=== PATIENT | male | born 1945 | race Caucasian/White ===

== ENCOUNTER 2016-09-07 03:38 | Emergency (ER) | payer OTHER ==
--- NOTE | 2016-09-07 06:02 | ED CLINICAL REPORT ---
Clinical Report - Physicians/Mid Levels [facility] [address] [place] [address] 09/07/2016 3:40 Patient: TIGRE BIANCHI Time Seen: 0340; initial patient contact. Arrived- By private vehicle. Historian- patient. HISTORY OF PRESENT ILLNESS Chief Complaint: FEVER. This started yesterday and is still present. It is not gone now. No muscle aches, chest pain, dyspnea, cough or altered mental status. No skin breakdown noted or rash. He has had fatigue. Additional history - No known contact with a sick individual. burning with urination. also describes rigors. Similar symptoms previously: None. Recent medical care: Not recently seen/assessed. REVIEW OF SYSTEMS No nausea, vomiting or headache. All systems otherwise negative, except as recorded above. PAST HISTORY See nurses notes. Medications: Hydrochlorothiazide Oral 25 mg, daily. Lisinopril Oral, daily. Allergies: No Known Drug Allergy. SOCIAL HISTORY Former smoker. Alcohol use. Not exposed to second-hand smoke at home. No drug use. No recent travel. Is a local resident. ADDITIONAL NOTES The nursing notes have been reviewed. PHYSICAL EXAM Vital Signs: 09/07/2016 03:46 BP: 121/62. HR: 85. RR: 20. O2 saturation: 91%. Temp: 102.7 F. Pain level now: 0/10. Blood pressure normal. Oxygen saturation normal. Appearance: Alert. No acute distress. (non-toxic appearance). ENT: Ears normal. Nose normal. Pharynx normal. Uvula midline. Neck: Normal inspection. Neck supple. No meningeal signs. CVS: Normal heart rate and rhythm. Heart sounds normal. Pulses normal. Respiratory: No respiratory distress. Breath sounds normal. Chest nontender. No rales, rhonchi or wheezes. Abdomen: Soft and nontender. Bowel sounds normal. Skin: Skin warm and dry. Normal skin color. No rash. Normal skin turgor. Extremities: Extremities exhibit normal ROM. Extremities nontender. LABS, X-RAYS, AND EKG Laboratory Tests: UA-Culture if indicated: (NIDIA: 09/07/2016 04:00) ( MsgRcvd 09/07/2016 04:28) Final results Test Result Flag Units (Reference) URINE COLOR YELLOW URINE APPEARANCE CLEAR URINE GLUCOSE NEGATIVE (NEGATIVE) URINE BILIRUBIN NEGATIVE (NEGATIVE) URINE KETONE NEGATIVE (NEGATIVE) URINE SPECIFIC GRAVITY >= 1.030 (1.010-1.030) URINE PH 6.0 (5.0-8.0) URINE PROTEIN 2+ (NEGATIVE) URINE UROBILINOGEN 0.2 EU/dL (0.2-1.0) URINE NITRITE POSITIVE (NEGATIVE) URINE BLOOD 3+ (NEGATIVE) URINE LEUK ESTERASE POSITIVE (NEGATIVE) URINE RBC 10-25 rbc/hpf (0-1) URINE WBC 5-10 wbc/hpf (0-1) URINE EPITHELIAL CELLS 0-1 EPI/hpf (0-5) URINE BACTERIA MODERATE (2+ TO 3+) (NONE SEEN) URINE COMMENT CULTURE INDICATED URINE CULTURES ARE SET-UP BASED ON THE FOLLOWING CRITERIA:POSITIVE NITRITEPOSITIVE LEUKOCYTE ESTERASEGREATER THAN 10 WHITE BLOOD CELLSMODERATE (2+) OR GREATER BACTERIA CBC w Diff: (NIDIA: 09/07/2016 04:00) ( [facility] 09/07/2016 04:22) Final results Test Result Flag Units (Reference) WHITE BLOOD COUNT 7.1 K/uL (4.5-11.5) RED BLOOD COUNT 4.62 M/uL (4.50-5.90) HEMOGLOBIN 12.7 L gm/dL (13.5-17.5) HEMATOCRIT 39.2 L % (41.0-53.0) MEAN CELL VOLUME 85 fL (80-100) MEAN CORPUSCULAR HGB 28 pg (26-34) MEAN CORPUSCULAR HGB CONC 33 g/dL (31-37) RED CELL DISTRIBUTION WIDTH 13.9 % (11.6-14.8) PLATELET COUNT 167 K/uL (150-400) NEUTROPHIL % 87.5 H % (50-75) LYMPH % 9.8 L % (25-40) MONO % 0.7 L % (3-14) EOSINOPHIL % 1.4 % (0-4) BASOPHIL % 0.6 % (0-2) Lactate, Serum: (NIDIA: 09/07/2016 05:08) ( [facility] 09/07/2016 05:55) Final results Test Result Flag Units (Reference) LACTIC ACID 2.0 mmol/L (0.4-2.0) Lactate, Serum: (NIDIA: 09/07/2016 04:00) ( [facility] 09/07/2016 04:40) Final results Test Result Flag Units (Reference) LACTIC ACID 2.1 H mmol/L (0.4-2.0) CRITICAL RESULTS CALLEDCalled to [facility] 09/07/16 0440Were 2 patient identifiers used? YWas the result read back? Y CMP: (NIDIA: 09/07/2016 04:00) ( [facility] 09/07/2016 04:36) Final results Test Result Flag Units (Reference) GLUCOSE 148 H mg/dL (70-110) BUN 20 H mg/dL (7-18) CREATININE 1.1 mg/dL (0.6-1.3) Estimated GFR >60 mL/min Estimated GFR- >60 mL/min Note: Persistent reduction over 3 months in eGFR<60 mL/min/1.73 m2 defines CKD. Patients with eGFR values>=60 mL/min/1.73 m2 may also have CKD if evidence ofpersistent proteinuria. Additional information may be foundat www.kidney.org. SODIUM 144 mmol/L (136-145) POTASSIUM 3.8 mmol/L (3.5-5.1) CHLORIDE 107 mmol/L (98-107) CARBON DIOXIDE 24 mmol/L (21-32) CALCIUM 8.7 mg/dL (8.5-10.1) TOTAL PROTEIN 6.9 g/dL (6.4-8.2) ALBUMIN 3.6 g/dL (3.3-5.0) BILIRUBIN, TOTAL 1.4 H mg/dL (0.0-1.0) ALKALINE PHOSPHATASE 77 U/L (46-116) AST (SGOT) 23 U/L (15-37) ALT (SGPT) 37 U/L (12-78) Culture, Urine: (NIDIA: 09/07/2016 04:00) ( MsgRcvd 09/08/2016 12:17) IP Test Result Flag Units (Reference) CULTURE, URINE DATE: 09/08/16 PRELIM REPORT: PRELIMINARY REPORT #1 -- GNR QUANTITATIVE URINE GROWTH: 50,000 TO 100,000 CFU/mL ID AND SENS TO FOLLOW: IDENTIFICATION AND SENSITIVITY TO FOLLOW . PROGRESS AND PROCEDURES Course of Care: the patient is a 70-year-old male presenting for a precaution fever. Patient with description of rigors. Patient also with dysuria. Patient will be evaluated with urinalysis as well as laboratory studies for any metabolic derangements from the patient's illness. Do not feel patient requires evaluation with chest x-ray given his symptoms and normal lung examination. Patient is Agreeable to the treatment plan. All questions have been answered. the patient's workup was workable for the findings above. No findings noted on patient's chest x-ray. Patient's urinalysis is positive for urinary tract infection. Because of the patient's workup here in emergency department, first dose antibiotics provided. Patient is nontoxic and in no acute distress. Patient does not appear septic at this time. Because the patient's overall well appearance and improved symptoms with treatments here in the emency department, though the patient is a stable outpatient candidate. Patient has significant support with hiswife who is at bedside Per patient's request. Discussed with the patient and spouse their workup. Emergency department including diagnosis, how-up, and return precautions. All questions have been answered. Thepatient and spouse expressed understanding of these instructions and was agreeable to them. Disposition: Discharged. Condition: good. CLINICAL IMPRESSION Acute fever (acute). 09/07/2016 05:45 BP: 112/58. HR: 71. RR: 18. O2 saturation: 96%. Temp: 100.5 F. Pain level now: 0/10. Blood pressure normal. Oxygen saturation normal. Acute urinary tract infection with cystitis and hematuria. INSTRUCTIONS Your Current Medications: CONTINUE TAKING THE FOLLOWING MEDICATIONS: Hydrochlorothiazide Oral : 25 mg daily. Lisinopril Oral : daily. Prescription Medications: Bactrim DS: take 1 tablet orally every 12 hours for 10 days. No refill. Substitution is not permissible. OTC Medications: Acetaminophen (available over the counter): take according to label instructions. Motrin (available over the counter): take according to label instructions. Follow-up: Return to the emergency department as needed. Follow up with your doctor in three days. Reason for referral: recheck today's concerns. Summary of care provided to patient via paper. Screening today revealed the patient's blood pressure to be in the normal range. The patient should follow up with a primary care provider for blood pressure management. Understanding of the discharge instructions verbalized by patient. (Electronically signed by Dieudonne Lora Dr. 09/08/2016 17:40)
--- NOTE | 2016-09-07 06:02 | ED ORDER SUMMARY ---
..... Patient: TIGRE BIANCHI OrderSheet [facility] VisitID: [id number] [place] [address] 70y, M Registration Date/Time: 09/07/2016 ORDER SHEET Weight: 120.2 kg (stated) Allergies: No Known Drug Allergy GENERAL ORDERS: CBC w Diff Urgent (03:56 09/07/2016 Elliot Neely) (Ack 4:00 CHagerty ER Embossing Calender Operator) (4:08 Vanessa R.N.) CMP Urgent (03:56 09/07/2016 Elliot Neely) (Ack 4:00 Estelaerty ER Embossing Calender Operator) (4:08 Vanessa R.N.) Lactate, Serum Urgent (03:56 09/07/2016 Elliot Neely) (Ack 4:00 Rodger ER Embossing Calender Operator) (4:08 Melodieburn R.N.) UA-Culture if indicated Urgent (03:56 09/07/2016 Elliot Neely) (Ack 4:00 Rodgre ER Embossing Calender Operator) (4:08 Vanessa R.N.) Pulse oximeter (03:56 09/07/2016 Elliot Neely) (Ack 4:00 Rodger ER Embossing Calender Operator) (4:08 Vanessa R.N.) Lactate, Serum Urgent (05:13 09/07/2016 Vanessa R.N. verbal order read back to Elliot Neely) (5:14 Vanessa R.N.) MEDICATION ORDERS: Tylenol PO 650 mg (NOW) (03:56 09/07/2016 Elliot Neely) (Ack 4:11 LEWISradargelia R.N.) (4:14 LEWISradargelia R.N.) IV FLUIDS: IV NS : initial bolus 1000 mL (1000 mL/hr), then none - for X1 (NOW) (03:55 09/07/2016 Elliot Neely) (4:09 Vanessa R.N.) Ceftriaxone IV 2 gm/50mL (NOW) (04:27 09/07/2016 Elliot Neely) (Ack 4:29 LEWISradargelia R.N.) (4:32 LEWISradburn R.N.) ORDER SHEET NOTES: [Electronically signed by Loan Tripathi R.N. (06:19 09/07/2016)] [Electronically signed by Dieudonne Lora Dr. (17:40 09/08/2016)] [Electronically locked/signed by Loan Tripathi R.N. (06:19 09/07/2016)]
--- NOTE | 2016-09-07 06:02 | ED NURSING NOTES ---
Clinical Report - Nurses [place] [address] [place] [address] 09/07/2016 3:40 Patient: TIGRE BIANCHI TRIAGE Triage time 03:46. Acuity: LEVEL 3. Chief Complaint: PAIN WITH URINATION and (Fever). --03:54 Loan Tripathi R.N. 03:46 09/07/16. BP: 121/62 taken on the left arm, while lying. HR: 85 (regular and normal rate). RR: 20 (regular and unlabored). O2 saturation: 91% on room air. Temp: 102.7 F (oral). Pain level now: 0/10. --03:54 Loan Tripathi R.N. Weight: 120.2 kg stated. Height/Length: 73 inches Per Patient. BMI: 35. --03:47 Loan Tripathi R.N. Medications Lisinopril Oral, daily. --03:49 Loan Tripathi R.N. Hydrochlorothiazide Oral 25 mg, daily. --03:50 Loan Tripathi R.N. Allergies No Known Drug Allergy. --03:50 Loan Tripathi R.N. History Arrived by private vehicle. Historian: patient. Accompanied by family. Primary physician (ESCOBAR coelho). This started yesterday. ( Shaking, chills, burning with urination). Treatment MANAGER SUPPORT: Took ibuprofen. PAST MEDICAL HX: Immunizations: up-to-date. SOCIAL HX: Former smoker, end date 1966. Regular alcohol use. No drug use. No infectious disease exposure. ABUSE ASSESSMENT: No report of abuse. SELF HARM ASSESSMENT: A self harm assessment was performed. The patient answered "no" to the question "Have you recently felt down, depressed, or hopeless?", "Have you noticed less interest or pleasure in doing things?", "Do you have thoughts of harming or killing yourself?", "Are you here because you tried to hurt yourself?", "Have you ever tried to hurt yourself before today?", "Have you recently had thoughts about harming or killing others?" and "Do you have any dangerous items in your possession?". --03:54 Loan Tripathi R.N. PROBLEMS: Prostate Disease. Hypertension. --03:51 Loan Tripathi R.N. ADDITIONAL SURGERIES: Hernia Repair. --03:51 Loan Tripathi R.N. Interventions ID band on patient. --03:54 Loan Tripathi R.N. PHYSICAL ASSESSMENT Ambulatory to room. GENERAL / NEURO / PSYCH: Alert. Oriented X 4. Appears in distress. HEENT: Mucous membranes are pink. RESPIRATORY: Respirations not labored. Decreased breath sounds in the bases bilaterally. Breath sounds within normal limits. CVS: Normal heart rate and rhythm. Capillary refill less than 2 seconds. GI / : Abdomen soft and nontender. Bowel sounds within normal limits. Burning during urination that is associated with frequency. SKIN: Skin is warm and dry. --03:55 Loan Tripathi R.N. NURSING PROGRESS NOTES Patient gowned. Reassurance given to the patient and patient's family. Two patient identifiers checked. Call light placed in reach. Side rails up x 1. Bed placed in lowest position. Brakes of bed on. Patient ready for evaluation- chart flagged. --03:56 Loan Tripathi R.N. 04:04 09/07/2016 Site #1 started via IV in the right antecubital space with an 20g angiocath, with aseptic technique and good blood return; one attempt. Blood drawn: rainbow set. Labeled in the presence of the patient and sent to the lab. Saline lock flushed with 10 mL saline. --04:09 Loan Tripathi R.N. 04:09 09/07/2016 Started bag #1 1000 mL IV Fluids IV NS (Saline); bolus of 1000 mL wide open then over 1 hour(s) via site #1. Allergies verified and confirmed 5 rights. IV patency established. IV site checked: no pain, redness, or swelling. IV flushed thoroughly pre- and post-medication administration. --04:09 Loan Tripathi R.N. 04:14 09/07/2016 Tylenol (Acetaminophen) PO Tablets 650 mg given. Allergies verified and confirmed 5 rights. --04:14 Loan Tripathi R.N. 04:29 09/07/2016 Started 2 gm of Ceftriaxone IVPB in bag #1 50 mL; over 20 minute(s) via site #1 via IV pump. Allergies verified and confirmed 5 rights. IV patency established. IV site checked: no pain, redness, or swelling. IV flushed thoroughly pre- and post-medication administration. --04:32 Loan Tripathi R.N. Critical value relayed to ED by nir 04:41. Critical value received by emanuel. Lactate level: 2.1. Critical value read back. Verified lab result. ED physician notifed of critical value. Orders were not received. --04:41 Loan Tripathi R.N. ( pt receiving IVF and antibiotics at time of critical value notification). --04:42 Loan Tripathi R.N. 04:49 09/07/2016 Ceftriaxone IVPB Discontinued: completed. Total amount infused: 50 mL. IV patency established. IV site checked: no pain, redness, or swelling. IV flushed thoroughly. --05:15 Loan Tripathi R.N. Patient ID band checked for patient name and birthdate: patient confirmed. Blood samples drawn from the right antecubital space peripheral IV site with Vacutainer by nurse per protocol ; labeled in presence of the patient and sent to lab: [place]. Line flushed with 10 mL normal saline post blood draw. The patient reports no complaints. --05:23 Loan Tripathi R.N. 05:45 09/07/16. BP: 112/58 taken on the left arm, while lying. HR: 71 (regular and normal rate). RR: 18. O2 saturation: 96% on room air. Temp: 100.5 F (oral). Pain level now: 0/10. --05:53 Loan Tripathi R.N. Reassessment after fluids administered and medication administered. He reports no complaints and he is calm. Overall patient status is improved- he states feels better. --05:53 Loan Tripathi R.N. Two patient identifiers checked. Call light placed in reach. --05:53 Loan Tripathi R.N. 05:53 09/07/2016 IV Fluids IV NS Discontinued: bag #1 completed. Total amount infused: 1000 mL. IV patency established. IV site checked: no pain, redness, or swelling. IV flushed thoroughly. --05:53 Loan Tripathi R.N. DISPOSITION / DISCHARGE 06:10 09/07/2016 Site #1 removed upon discharge. Catheter intact. Manual pressure and bandage applied. --06:17 Loan Tripathi R.N. Departure time: 0610. Condition at departure: improved and stable. No learning barriers present. Discharge instructions provided and reviewed with the patient. Reviewed medication(s) side effects, precautions, dosing and course information. Prescription(s) given to the patient. Patient and spouse verbalized understanding. Written instructions provided in [place]. The patient was discharged home and accompanied by spouse. He left the Emergency Department ambulatory and via private vehicle. Spouse driving. --06:18 Loan Tripathi R.N. 06:08 09/07/16. BP: 102/61. HR: 74 (regular and normal rate). RR: 18 (regular and unlabored). O2 saturation: 93% on room air. Temp: deferred. Pain level now: 0/10. --06:18 Loan Tripathi R.N. Locked/Released at 09/07/2016 6:19 by Loan Tripathi R.N.
--- NOTE | 2016-09-07 06:02 | ED ORDER SUMMARY ---
..... Patient: TIGRE BIANCHI OrderSheet [facility] VisitID: [id number] [place] [address] 70y, M Registration Date/Time: 09/07/2016 ORDER SHEET Weight: 120.2 kg (stated) Allergies: No Known Drug Allergy GENERAL ORDERS: CBC w Diff Urgent (03:56 09/07/2016 Elliot Neely) (Ack 4:00 CHagerty ER System Trainer) (4:08 Vanessa R.N.) CMP Urgent (03:56 09/07/2016 Elliot Neely) (Ack 4:00 Estelaerty ER System Trainer) (4:08 Vanessa R.N.) Lactate, Serum Urgent (03:56 09/07/2016 Elliot Neely) (Ack 4:00 Rodger ER System Trainer) (4:08 Melodieburn R.N.) UA-Culture if indicated Urgent (03:56 09/07/2016 Elliot Neely) (Ack 4:00 Rodger ER System Trainer) (4:08 Vanessa R.N.) Pulse oximeter (03:56 09/07/2016 Elliot Neely) (Ack 4:00 Rodger ER System Trainer) (4:08 Vanessa R.N.) Lactate, Serum Urgent (05:13 09/07/2016 Vanessa R.N. verbal order read back to Elliot Neely) (5:14 Vanessa R.N.) MEDICATION ORDERS: Tylenol PO 650 mg (NOW) (03:56 09/07/2016 Elliot Neley) (Ack 4:11 LEWISradargelia R.N.) (4:14 LEWISradargelia R.N.) IV FLUIDS: IV NS : initial bolus 1000 mL (1000 mL/hr), then none - for X1 (NOW) (03:55 09/07/2016 Elliot Neely) (4:09 Vanessa R.N.) Ceftriaxone IV 2 gm/50mL (NOW) (04:27 09/07/2016 Elliot Neely) (Ack 4:29 LEWISradargelia R.N.) (4:32 LEWISradburn R.N.) ORDER SHEET NOTES: [Electronically signed by Loan Tripathi R.N. (06:19 09/07/2016)] [Electronically signed by Dieudonne Lora Dr. (17:40 09/08/2016)] [Electronically locked/signed by Lona Tripathi R.N. (06:19 09/07/2016)]
--- NOTE | 2016-09-08 17:40 | ED MAR SUMMARY ---
..... Medication Administration Record [facility] [address] [place] [address] Patient: TIGRE BIANCHI Visit ID: [id number] 70y, M Weight: 120.2 kg Height/Length: 73 in BMI: 35 ALLERGIES: No Known Drug Allergy Start 04:09 09/07/2016 Loan Tripathi R.N., Stop 05:53 09/07/2016 Loan Tripathi R.N. Medication Administered: IV NS (SALINE), Dose: IV Fluids over 1 hour(s), Bolus: 1000 mL wide open, Dispensed: 1000 mL bag, Site: #1 right AC. Medication Ordered: IV NS : initial bolus 1000 mL (1000 mL/hr), then none - for X1 (NOW). Given 04:14 09/07/2016 Loan Tripathi R.N. Medication Administered: TYLENOL [PO] (ACETAMINOPHEN), Dose: 650 mg Tablets PO. Medication Ordered: Tylenol PO 650 mg (NOW). Start 04:29 09/07/2016 Loan Tripathi R.N., Stop 04:49 09/07/2016 Loan Tripathi R.N. Medication Administered: CEFTRIAXONE [IVPB], Dose: 2 gm IVPB over 20 minute(s), Dispensed: 50 mL bag, Site: #1 right AC. Medication Ordered: Ceftriaxone IV 2 gm/50mL (NOW).
--- NOTE | 2016-09-08 17:40 | ED DISCHARGE INSTRUCTIONS ---
Patient: TIGRE BIANCHI General Instructions [facility] VisitID: [id number] [place] [address] 70y, M Registration Date/Time: 09/07/2016 Acute fever (acute). 09/07/2016 05:45 BP: 112/58. HR: 71. RR: 18. O2 saturation: 96%. Temp: 100.5 F. Pain level now: 0/10. Blood pressure normal. Oxygen saturation normal. Acute urinary tract infection with cystitis and hematuria. INSTRUCTIONS Your Current Medications: CONTINUE TAKING THE FOLLOWING MEDICATIONS: Hydrochlorothiazide Oral : 25 mg daily. Lisinopril Oral : daily. Prescription Medications: Bactrim DS: take 1 tablet orally every 12 hours for 10 days. No refill. Substitution is not permissible. OTC Medications: Acetaminophen (available over the counter): take according to label instructions. Motrin (available over the counter): take according to label instructions. Follow-up: Return to the emergency department as needed. Follow up with your doctor in three days. Reason for referral: recheck today's concerns. Summary of care provided to patient via paper. Screening today revealed the patient's blood pressure to be in the normal range. The patient should follow up with a primary care provider for blood pressure management. Understanding of the discharge instructions verbalized by patient. ADDITIONAL INFORMATION Febrile Illness, Uncertain Cause (Adult) You have a fever, but the cause is not certain. A fever is a natural reaction of the body to an illness such as infections due to a virus or bacteria. In most cases, the temperature itself is not harmful. It actually helps the body fight infections. A fever does not need to be treated unless you feel very uncomfortable. Sometimes a fever can be an early sign of a more serious infection. Therefore, you should watch for the signs listed below. Home Care: If signs and symptoms are severe, rest at home for the first 2-3 days. When you resume activity, don't let yourself get too tired. Stay away from cigarette smoke (yours and other peoples). You may use acetaminophen (Tylenol) or ibuprofen (Motrin, Advil) to control fever or pain, unless another medicine was prescribed. NOTE: If you have chronic liver or kidney disease or ever had a stomach ulcer or GI bleeding, talk with your doctor before using these medicines. (Aspirin should never be used in anyone under 18 years of age who is ill with a fever. It may cause severe liver damage.) Your appetite may be poor, so a light diet is fine. Avoid dehydration by drinking 6-8 glasses of fluid per day (water, sport drinks such as Gatorade, sodas without caffeine, juices, tea, soup). Extra fluid will help loosen secretions in the nose and lungs. Xsrb-hpf-rbidoqm products will not shorten the duration of the illness but may be helpful for the following symptoms: cough (Robitussin DM); sore throat (Chloraseptic lozenges or spray); nasal and sinus congestion (Actifed or Sudafed). NOTE: Do not use decongestants if you have high blood pressure. Follow Up with your doctor or as advised if you do not start to improve over the next week. Get Prompt Medical Attention if any of the following occur: Cough with lots of colored sputum (mucus) or blood in your sputum Chest pain, shortness of breath, wheezing or difficulty breathing Severe headache, face, neck, throat or ear pain Feeling drowsy or confused Abdominal pain, repeated vomiting or diarrhea Joint pain or a new rash Burning when urinating Fever of 100.4F (38C) oral or higher, not better with fever medication Feeling weak or dizzy Convulsion Bladder Infection,Male (Adult) A bladder infection ("cystitis" or "UTI") usually causes a constant urge to urinate, and a burning when passing urine. Urine may be cloudy, smelly or dark. There may be also be pain in the lower abdomen. Cystitis in males is not common. It may be caused by a partial blockage in the urinary system that keeps the bladder from emptying completely. This is most often related to an enlarged prostate gland. Home Care: Drink lots of fluids (at least 6-8 glasses a day). This will flush the bacteria out of your bladder. Avoid sexual intercourse until your symptoms are gone. Avoid caffeine, alcohol, and spicy foods. They could irritate the bladder. A bladder infection is treated with antibiotics. You may also be given Pyridium (generic - phenazopyridine) to reduce burning with urination. This will cause urine to become a bright orange color, which can stain clothing. Follow Up with your doctor or this facility if ALL symptoms have not cleared within five days. It is important to keep your follow up appointment to discuss with your doctor the need for further tests of the urinary tract. Get Prompt Medical Attention if any of the following occur: Fever of 100.4F (38C) or higher, or as directed by your healthcare provider No improvement by the third day of treatment Increasing back or abdominal pain Repeated vomiting; unable to keep medicine down Weakness, dizziness or fainting Sulfamethoxazole, Trimethoprim Oral tablet What is this medicine? SULFAMETHOXAZOLE; TRIMETHOPRIM or SMX-TMP (suhl fuh meth OK joan zohl; trye METH oh prim) is a combination of a sulfonamide antibiotic and a second antibiotic, trimethoprim. It is used to treat or prevent certain kinds of bacterial infections. It will not work for colds, flu, or other viral infections. How should I use this medicine? Take this medicine by mouth with a full glass of water. Follow the directions on the prescription label. Take your medicine at regular intervals. Do not take it more often than directed. Do not skip doses or stop your medicine early. Talk to your b2b appointment setter regarding the use of this medicine in children. Special care may be needed. This medicine has been used in children as young as 2 months of age. What side effects may I notice from receiving this medicine? Side effects that you should report to your doctor or health critical care clinical nurse specialist as soon as possible: allergic reactions like skin rash or hives, swelling of the face, lips, or tongue breathing problems fever or chills, sore throat irregular heartbeat, chest pain joint or muscle pain pain or difficulty passing urine red pinpoint spots on skin redness, blistering, peeling or loosening of the skin, including inside the mouth unusual bleeding or bruising unusually weak or tired yellowing of the eyes or skin Side effects that usually do not require medical attention (report to your doctor or health critical care clinical nurse specialist if they continue or are bothersome): diarrhea dizziness headache loss of appetite nausea, vomiting nervousness What may interact with this medicine? Do not take this medicine with any of the following medications: aminobenzoate potassium dofetilide metronidazole This medicine may also interact with the following medications: EBONY inhibitors like benazepril, enalapril, lisinopril, and ramipril cyclosporine digoxin diuretics indomethacin medicines for diabetes methenamine methotrexate phenytoin potassium supplements pyrimethamine sulfinpyrazone tricyclic antidepressants warfarin What if I miss a dose? If you miss a dose, take it as soon as you can. If it is almost time for your next dose, take only that dose. Do not take double or extra doses. Where should I keep my medicine? Keep out of the reach of children. Store at room temperature between 20 to 25 degrees C (68 to 77 degrees F). Protect from light. Throw away any unused medicine after the expiration date. What should I tell my health care provider before I take this medicine? They need to know if you have any of these conditions: anemia asthma being treated with anticonvulsants if you frequently drink alcohol containing drinks kidney disease liver disease low level of folic acid or [id number]-zhyvrdeqa dehydrogenase poor nutrition or malabsorption porphyria severe allergies thyroid disorder an unusual or allergic reaction to sulfamethoxazole, trimethoprim, sulfa drugs, other medicines, foods, dyes, or preservatives or trying to get breast-feeding What should I watch for while using this medicine? Tell your doctor or health critical care clinical nurse specialist if your symptoms do not improve. Drink several glasses of water a day to reduce the risk of kidney problems. Do not treat diarrhea with over the counter products. Contact your doctor if you have diarrhea that lasts more than 2 days or if it is severe and watery. This medicine can make you more sensitive to the sun. Keep out of the sun. If you cannot avoid being in the sun, wear protective clothing and use a sunscreen. Do not use sun lamps or tanning beds/booths. You have been given the following additional information: Febrile Illness, Uncertain Cause (Adult) Bladder Infection, Male (Adult) Sulfamethoxazole, Trimethoprim Oral tablet (Electronically signed by Dieudonne Lora Dr. 09/08/2016 17:40)
--- NOTE | 2016-09-08 17:40 | ED MAR SUMMARY ---
..... Medication Administration Record [facility] [address] [place] [address] Patient: TIGRE BIANCHI Visit ID: [id number] 70y, M Weight: 120.2 kg Height/Length: 73 in BMI: 35 ALLERGIES: No Known Drug Allergy Start 04:09 09/07/2016 Loan Tripathi R.N., Stop 05:53 09/07/2016 Loan Tripathi R.N. Medication Administered: IV NS (SALINE), Dose: IV Fluids over 1 hour(s), Bolus: 1000 mL wide open, Dispensed: 1000 mL bag, Site: #1 right AC. Medication Ordered: IV NS : initial bolus 1000 mL (1000 mL/hr), then none - for X1 (NOW). Given 04:14 09/07/2016 Loan Tripathi R.N. Medication Administered: TYLENOL [PO] (ACETAMINOPHEN), Dose: 650 mg Tablets PO. Medication Ordered: Tylenol PO 650 mg (NOW). Start 04:29 09/07/2016 Loan Tripathi R.N., Stop 04:49 09/07/2016 Loan Tripathi R.N. Medication Administered: CEFTRIAXONE [IVPB], Dose: 2 gm IVPB over 20 minute(s), Dispensed: 50 mL bag, Site: #1 right AC. Medication Ordered: Ceftriaxone IV 2 gm/50mL (NOW).
--- NOTE | 2016-09-08 17:40 | ED MED RECONCILIATION SUMMARY ---
Patient: TIGRE BIANCHI Medication Reconciliation Report [facility] VisitID: [id number] [address] [place] [address] 70y, M Registration Date/Time: 09/07/2016 Weight: 120.2 kg Height/Length: 73 in. BMI: 35.0 ALLERGIES: No Known Drug Allergy The patient's Home Medications are listed below: CONTINUE TAKING THE FOLLOWING MEDICATIONS: Hydrochlorothiazide Oral 25 mg, daily Lisinopril Oral, daily The source(s) of the original Home Medication information: Not obtained. The following Medications were given to the patient in the Emergency Department: IV NS IV Fluids bolus 1000 mL wide open, administered: 09/07/2016 4:09:00 AM Tylenol [PO] PO 650 mg, administered: 09/07/2016 4:14:00 AM Ceftriaxone [IVPB] IVPB bolus 0, then 2 gm, administered: 09/07/2016 4:29:00 AM The following Medications were prescribed to the patient: Acetaminophen (available over the counter): take according to label instructions. -- Dieudonne Lora Dr. Motrin (available over the counter): take according to label instructions. -- Dieudonne Lora Dr. Bactrim DS: take 1 tablet orally every 12 hours for 10 days. No refill. Substitution is not permissible. -- Dieudonne Lora Dr.
--- NOTE | 2016-09-08 17:40 | ED MED RECONCILIATION SUMMARY ---
Patient: TIGRE BIANCHI Medication Reconciliation Report [facility] VisitID: [id number] [address] [place] [address] 70y, M Registration Date/Time: 09/07/2016 Weight: 120.2 kg Height/Length: 73 in. BMI: 35.0 ALLERGIES: No Known Drug Allergy The patient's Home Medications are listed below: CONTINUE TAKING THE FOLLOWING MEDICATIONS: Hydrochlorothiazide Oral 25 mg, daily Lisinopril Oral, daily The source(s) of the original Home Medication information: Not obtained. The following Medications were given to the patient in the Emergency Department: IV NS IV Fluids bolus 1000 mL wide open, administered: 09/07/2016 4:09:00 AM Tylenol [PO] PO 650 mg, administered: 09/07/2016 4:14:00 AM Ceftriaxone [IVPB] IVPB bolus 0, then 2 gm, administered: 09/07/2016 4:29:00 AM The following Medications were prescribed to the patient: Acetaminophen (available over the counter): take according to label instructions. -- Dieudonne Lora Dr. Motrin (available over the counter): take according to label instructions. -- Dieudonne Lora Dr. Bactrim DS: take 1 tablet orally every 12 hours for 10 days. No refill. Substitution is not permissible. -- Dieudonne Lora Dr.
== END 2016-09-07 06:10 | disposition home or self-care (01) ==
LOC: ED SRH 03:38
DX: N30.01 Acute cystitis with hematuria (principal); R50.9 Fever, unspecified; Z77.22 Contact with and (suspected) exposure to environmental tobacco smoke (acute) (chronic); Z79.899 Other long term (current) drug therapy
CPT/HCPCS: 90004; 90100; 90148; 90469; 92031; 95059